=== PATIENT | male | born 1990 | race Caucasian/White ===

== ENCOUNTER 2020-04-05 15:37 | Outpatient (REF) | payer MEDICAID, SELFPAY | END 2020-04-05 15:38 | disposition home or self-care (01) | LOC: HO.LAB 15:37 | PROVIDERS: PCP Internal Medicine; Visit Provider Internal Medicine | DX: Z20.828 Contact with and (suspected) exposure to other viral communicable diseases (principal) | CPT/HCPCS: 87635 ==

== ENCOUNTER 2020-10-23 22:52 | Emergency (ER) | payer MEDICAID, SELFPAY ==
[2020-10-24 00:45] VITALS: BP 124/67; PULSE 53; RESP 16; TEMP 37; O2SAT 96; BMI 26.6
--- NOTE | 2020-10-24 00:45 | ED.SKABFB ---
HPI - Skin/Abscess/Foreign Bdy General Stated complaint: ABCESS Time Seen by Provider: 10/24/20 00:32 Source: patient Mode of arrival: ambulatory Limitations: no limitations History of Present Illness HPI narrative: 28-year-old male with history of polysubstance abuse and active IV heroin use he states he injected into the right hand 2 days ago and now having some redness to the right hand. Denies any fever or chills. States he has had similar episodes happen in the past and this is not the worst. Denies any pain or discomfort in the hand, swelling, fever, chest pain, chills. MD complaint: abscess/boil Onset (ago): day(s) Tetanus up to date: yes Location: R hand Severity: mild Relieving factors: none Exacerbating factors: none Context: none Associated symptoms: denies other symptoms Treatments prior to arrival: none Related Data Previous Rx's Medication Instructions Recorded cephalexin 500 mg PO TID 10 Days #30 cap 10/24/20 sulfamethoxazole-trimethoprim 1 tab PO Q12H 7 Days #14 tab 10/24/20 [Bactrim DS] Allergies Allergy/AdvReac Type Severity Reaction Status Date / Time amoxicillin [AMOXICILLIN] Allergy Unknown UNKNOWN Unverified 03/07/20 19:16 Review of Systems Review of Systems: Constitutional: No Weight loss, No Fever, No Chills, No Night Sweats, No Fatigue, No Malaise ENT/Mouth: No Hearing loss, No Ear Pain, No Nasal Congestion, No Sinus Pain, No Hoarseness, No sore throat, No Rhinorrhea, No Swallowing Difficulty Eyes: No Eye Pain, No Swelling, No Redness, No Foreign Body, No Discharge, No Vision Changes Cardiovascular: No Chest Pain, No SOB, No Dyspnea on Exertion, No Orthopnea, No Edema, No Palpitations Respiratory: No Cough, No Sputum, No Wheezing, No Smoke Exposure, No Dyspnea Gastrointestinal: No Nausea, No Vomiting, No Diarrhea, No Constipation, No abdominal Pain, No Hematochezia, No Melena Genitourinary: no irregular bleeding, No Dysuria, No Urinary Frequency, No Hematuria, No Urinary Incontinence, No Urgency, No Flank Pain, No Urinary Flow Changes, No Hesitancy Musculoskeletal: No joint pain, No Myalgias, No Joint Swelling Skin: No Skin Lesions, as noted per HPI Neuro: No Weakness, No Numbness, No Paresthesias, No Loss of Consciousness, No Dizziness, No Headache Psych: No Anxiety/Panic, No Depression, No SI/HI/AH/VH, No Social Issues Heme/Lymph: No Bruising, No Bleeding,No Lymphadenopathy Endocrine: No Polyuria, No Polydipsia, No Temperature Intolerance Yes all other systems are reviewed and are negative [facility] Past Medical History Medical History (Updated 10/24/20 @ 00:52 by Jewel Rasmussen NP) Substance abuse Physical Exam Vital Signs: Vital Signs: Reviewed Const: General: cooperative and healthy appearing; No acute distress or intoxicated appearing Nutritional Appearance: average body habitus Orientation/consciousness: patient oriented x3 HENMT: Head: Yes normal to inspection Ears: hearing grossly normal bilaterally Eyes: General: appearance normal, both eyes and all related structures Visual Palacio: normal visual palacio by confrontation Neck: Neck: Yes normal visual inspection, No positive Brudzinski's sign, No positive Kernig's sign and No tender Thyroid: Thyroid normal Chest: Chest palpation & inspection: normal inspection of the chest Resp: Effort & Inspection: normal respiratory effort Auscultation: clear to auscultation bilaterally Cardio: Jugular venous distension: no JVD Rhythm: regular rhythm Heart sounds: S1 normal heart sound present, S2 normal heart sound present, no gallops, no murmurs and no rubs GI: Inspection: Yes normal to inspection Percussion: Yes normal to percussion Auscultation: normal bowel sounds : General: Yes no CVA tenderness Back/Spine/Pelvis: Back: no CVA tenderness Skin: Other: General skin exam: no rashes or lesions noted Neuro: General: patient oriented x3 Extrem: General: Yes normal to inspection Course Course Course Narrative: In review 30-year-old male with history of substance abuse uses IV heroin for recreational purposes injected into right hand/wrist area with now having cellulitis no drainable collection with bedside ultrasound. Declined labs states he would like to trial p.o. antibiotics. He does not have any systemic symptoms at this time vitals are stable no complaint of chest pain or shortness of breath. Given dose of Keflex and Bactrim here will give him prescription of this for home he will have this checked closely in 2 days either here or primary care doctor. In the meantime referral provided to [facility] for further detox assistance. Discharge Plan Discharge Clinical Impression: Active substance abuse, Cellulitis of finger of right hand Patient Disposition: Home, Self-Care Instructions: Cellulitis (ED), Opioid Use Disorder (ED) Additional Instructions: Please stop doing illicit drugs as cause serious problems to health in the [facility] and even cause Please start drinking the antibiotics as prescribed Return in 2 days for recheck Return sooner if any concerns or worsening symptoms Thank you Prescriptions: New sulfamethoxazole-trimethoprim [Bactrim DS] 800-160 mg tablet 1 tab PO Q12H 7 Days Qty: 14 RF: 0 cephalexin 500 mg capsule 500 mg PO TID 10 Days Qty: 30 RF: 0 Referrals: Jewel Rasmussen NP [Emergency Midlevel Provider] - 2 days (For recheck of the right hand cellulitis) Radha Coburn MD [Primary Care Provider] - 2 days
[2020-10-24] MEDS: cephALEXin 500 MG CAPSULE PO (01:07)
== END 2020-10-24 01:13 | disposition home or self-care (01) ==
LOC: HO.ED 10-24 01:03
PROVIDERS: Emergency Provider Internal Medicine; PCP Internal Medicine
DX: F11.10 Opioid abuse, uncomplicated (principal); L03.113 Cellulitis of right upper limb
CPT/HCPCS: 99283